=== PATIENT | male | born 1975 | race Caucasian/White ===

== ENCOUNTER 2019-02-25 17:36 | Emergency (ER) | payer OTHER ==
[~2019-02-25] VITALS: Ht 175.3 cm; Wt 81.7 kg
[2019-02-25] MEDS ORDERED: LIORESAL 10 MG10 MG PO (18:07)
[2019-02-25] MEDS ORDERED: LISINOPRIL10 MG PO (18:07)
[2019-02-25] MEDS ORDERED: GABAPENTIN 100100 MG PO (18:08)
[2019-02-25 19:23] LABS: ABSOLUTE NEUTROPHILS 5.8 thou/uL (1.4-8.2); BASOPHILS 0.8 % (0.0-2.0); EOSINOPHILS 1.8 % (0.0-3.0); HEMATOCRIT 45.4 % (42.0-52.0); HEMOGLOBIN 15.5 gm/dL (14.0-18.0); LYMPHOCYTES 29.8 % (24.0-44.0); MCHC 34.2 g/dL (28.0-37.0); MCV 84.7 fL (80.0-100.0); MONOCYTES 9.5 % (1.0-8.0); PLATELET COUNT 174 thou/uL (150-400); POLYS 58.1 % (36.0-66.0); RBC 5.35 mil/uL (4.50-6.00); WBC 10.1 thou/uL (4.0-11.0)
[2019-02-25 19:34] LABS: ANION GAP 8 mmol/L (7-16); BUN 20 mg/dL (7-18); CALCIUM 9.5 mg/dL (8.5-10.1); CHLORIDE 102 mmol/L (98-107); CO2 29 mmol/L (21-32); CREATININE 1.2 mg/dL (0.7-1.3); GLUCOSE 112 mg/dL (74-106); POTASSIUM 4.1 mmol/L (3.5-5.1); SODIUM 139 mmol/L (136-145)
[2019-02-25 19:44] LABS: ALBUMIN 3.5 g/dL (3.4-5.0); SGOT 146 U/L (15-37); SGPT 279 U/L (30-65); TOTAL BILIRUBIN 0.3 mg/dL (<0.1-1.0); TROPONIN-I <0.06 ng/mL (<0.06)
[2019-02-25] MEDS ORDERED: MOBIC7.5 MG PO (20:16)
[2019-02-25 21:20] VITALS: BP 157/107
--- NOTE | 2019-02-26 14:15 | EKG ---
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 : 1975 Requested By: Lore Fletcher Order Number: [id number] MD: Samuel Schulz Measurements Intervals [place] Rate: 75 P: 46 WV: 207 QRS: -10 QRSD: 96 T: 52 QT: 369 QTc: 413 Interpretive Statements Sinus rhythm Borderline prolonged WV interval RSR' in V1 or V2, right VCD No previous ECG available for comparison Electronically Signed On 02-26-2019 14:14:58 CDT by Samuel Schulz [email or web address] ��������������������������������������������� <ELECTRONICALLY SIGNED> ���������������������������������������� By: Samuel Schulz MD, [facility] ��������������������������������������������� 02/26/19 1414 58 58 Samuel Schulz MD, FAC /EPI
== END 2019-02-25 21:20 | disposition home or self-care (01) ==
LOC: ER 17:36
PROVIDERS: Nurse Practitioner Family
DX: M54.16 Radiculopathy, lumbar region (principal); I10 Essential (primary) hypertension; R74.8 Abnormal levels of other serum enzymes; B19.20 Unspecified viral hepatitis C without hepatic coma; F17.210 Nicotine dependence, cigarettes, uncomplicated